=== PATIENT | male | born 1935 | race Caucasian/White ===

== ENCOUNTER 2022-06-08 10:25 | Emergency (ER) | payer MEDICARE ==
[2022-06-08] MEDS ORDERED: Sodium Chloride 0.9% 10 ML Syringe FLUSH PRN (11:01)
[2022-06-08 11:58] LABS: ESTIMATED GFR 53 mL/min (>60)
[2022-06-08] MEDS ORDERED: Sodium Chloride 0.9% 1,000 ML IV ONE (12:43)
== END 2022-06-08 14:22 ==
LOC: JP.ED 10:25
DX: R31.0 Gross hematuria (principal); R93.5 Abnormal findings on diagnostic imaging of other abdominal regions, including retroperitoneum; N28.89 Other specified disorders of kidney and ureter
CPT/HCPCS: 36415; 70450; 74178; 80053; 81001; 83605; 83735; 85025; 85610; 85730; 86140; 93005; 93010; 99283; 99285; J3490; Q9967